=== PATIENT | male | born 1965 | race African-American/Black ===

== ENCOUNTER 2017-03-04 15:46 | Emergency (ER) | payer OTHER ==
[~2017-03-04] VITALS: Wt 84.5 kg
[~2017-03-04 15:46] MED LIST: ASPI325T4 PO; LORA-441 PO
[2017-03-04] MEDS ORDERED: LIDOCAINE 1% (MDV) 20 ML INJ SC ONE (16:30)
[2017-03-04] MEDS ORDERED: IBUPROFEN 600 MG TAB PO ONE (16:30)
[2017-03-04] MEDS ORDERED: DIPHTH/TET/ACEL PERTUSS (ADULT) 0.5 ML VIAL IM* ONE (16:30)
[2017-03-04] MEDS ORDERED: BACI28.34 TOP (17:11)
[2017-03-04] MEDS ORDERED: NAPR-260 PO (17:12)
--- NOTE | 2017-03-06 19:42 | ERD ---
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 The patient's tetanus is not up-to-date. This occurred 1 hour prior to arrival. The patient is right-hand dominant. The patient reports a moderate amount of pain associated with the laceration. He denies possible foreign body. He denies other injuries. No other complaints currently. ROS All systems reviewed and are negative except as per history of present illness. Medications Home Meds Active Scripts Naproxen* (Naprosyn*) 500 Mg Tablet, 500 MG PO BID Y for PAIN AND/OR INFLAMMATION, #20 TAB Prov:CHARMAINE OH PA-C 03/04/17 Bacitracin* (Bacitracin Zinc Oint*) 28.35 Gm Oint, 1 APPLIC TOP BID for 5 Days, #1 TUB APPLI TO Prov:CHARMAINE OH PA-C 03/04/17 Aspirin* (Aspirin*) 325 Mg Tablet, 325 MG PO DAILY, #30 TAB Prov:MAMTA OVERTON 11/11/15 Lorazepam* (Ativan*) 0.5 Mg Tablet, 0.5 MG PO Q8H Y for ANXIETY, #10 TAB Prov:MAMTA OVERTON 11/11/15 Allergies Allergies: Coded Allergies: No Known Allergies (Verified Allergy, Mild, 11/11/15) PMhx/Soc History of Surgery: No Anesthesia Reaction: No Hx Neurological Disorder: No Hx Respiratory Disorders: No Hx Cardiac Disorders: No Hx Psychiatric Problems: Yes (anxiety) Hx Miscellaneous Medical Probl: No Hx Alcohol Use: Yes (rarely) Hx Substance Use: No Hx Tobacco Use: No (quitted 8 years ago) Physical Exam Vitals Vital Signs Date Time Temp Pulse Resp B/P Pulse Ox O2 Delivery O2 Flow Rate FiO2 03/04/17 15:48 98.7 120 18 158/96 99 Physical Exam Const: Nontoxic, well-appearing male in mild distress secondary to pain. Head: Atraumatic Eyes: Normal Conjunctiva ENT: Normal External Ears, Nose and Mouth. Neck: Full range of motion..~ No meningismus. Skin: There is an approximate 2 cm laceration noted to the anterior aspect of the left index finger with no foreign body visualized. Back: No midline or flank tenderness Ext: No cyanosis, or edema Neur: Awake and alert Psych: Normal Mood and Affect Results 24 hrs Current Medications Medications (Trade) Dose Ordered Sig/Tree Route PRN Reason Start Time Stop Time Status Last Admin Dose Admin Diphtheria/ Tetanus/Acell Pertussis (Adacel) 0.5 ml ONCE ONCE IM* 03/04/17 16:30 03/04/17 16:31 DC 03/04/17 16:30 Lidocaine (Xylocaine 1% (Mdv) 20 ml) 20 ml ONCE ONCE SC 03/04/17 16:30 03/04/17 16:31 DC Ibuprofen (Motrin) 600 mg ONCE ONCE PO 03/04/17 16:30 03/04/17 16:31 DC 03/04/17 16:29 Procedures/MDM 51-year-old male presents to the emergency department with complaints of laceration to the left finger. 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 Tendon/Joint/Nerves: No injury Foreign body: None detected after copious irrigation and exploration Technique: Simple Interrupted Sutures Complexity: No subcutaneous sutures/mucosal repair/ edge excision Post Closure Length: 2 cm Patient's bleeding was easily controlled in the department and there is no indication of anemia. No evidence of compartment syndrome, neurologic injury, vascular injury, open joint, tendon laceration, or foreign body. Patient is appropriate for outpatient follow up. Tdap was updated. 48 hour wound check. Scar minimization instructions given. Departure Diagnosis: Primary Impression: Laceration Condition: Stable Patient Instructions: Laceration, Hand Referrals: [facility] YOU HAVE RECEIVED A MEDICAL SCREENING EXAM AND THE RESULTS INDICATE THAT YOU DO NOT HAVE A CONDITION THAT REQUIRES URGENT TREATMENT IN THE EMERGENCY DEPARTMENT. FURTHER EVALUATION AND TREATMENT OF YOUR CONDITION CAN WAIT UNTIL YOU ARE SEEN IN YOUR DOCTORS OFFICE WITHIN THE NEXT 1-2 DAYS. IT IS YOUR RESPONSIBILITY TO MAKE AN APPOINTMENT FOR FOLOW-UP CARE. IF YOU HAVE A PRIMARY DOCTOR --you should call your primary doctor and schedule an appointment IF YOU DO NOT HAVE A PRIMARY DOCTOR YOU CAN CALL OUR PHYSICIAN REFERRAL HOTLINE AT IF YOU CAN NOT AFFORD TO SEE A PHYSICIAN YOU CAN CHOSE FROM THE FOLLOWING [facility] [address] [facility] [address] [facility] [address] [facility] [address] [facility]. [facility] [address] [facility]. [facility] [address] [place] Additional Instructions: Please return in 2 days for wound recheck. Please return in 7 days for suture removal. Follow up with your PCP within the next 1-3 days for a repeat evaluation. If your diagnosis requires a referral to a specialist, your Primary Care Physician may be able to provide this for you. Return the the emergency department immediately if symptoms worsen or change. If you have any questions regarding medications, ask your pharmacist or us before you leave. If any adverse reactions, occur while taking your medications, discontinue the treatment and return to the emergency department immediately. If any new or worsening symptoms, uncontrolled fevers, or other unexplained symptoms occur, return to the emergency department immediately. Take your medications as directed, and complete the entire course of treatment. CHARMAINE OH PA-C Mar 06, 2017 19:42
== END 2017-03-04 17:30 | disposition home or self-care (01) ==
LOC: FTE 15:46
DX: S61.211A Laceration without foreign body of left index finger without damage to nail, initial encounter (principal); W22.8XXA Striking against or struck by other objects, initial encounter; Y92.89 Other specified places as the place of occurrence of the external cause; Z23 Encounter for immunization; Z79.82 Long term (current) use of aspirin; Z87.891 Personal history of nicotine dependence
CPT/HCPCS: 12001; 90715; Z7610; 90471

== ENCOUNTER 2017-03-11 16:31 | Emergency (ER) | payer OTHER ==
[~2017-03-11] VITALS: Ht 182.9 cm; Wt 84.0 kg
[~2017-03-11 16:31] MED LIST changes: +BACI28.34 TOP; +NAPR-260 PO
[2017-03-11 16:40] VITALS: Ht 182.9 cm; Wt 84.0 kg
--- NOTE | 2017-03-11 18:03 | ERD ---
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 Patient had 4 sutures placed. Denies any fever, chills, loss of sensation, loss of range of motion, purulent discharge. Reports that he is right-handed. ROS All systems reviewed and are negative except as per history of present illness. Medications Home Meds Active Scripts Naproxen* (Naprosyn*) 500 Mg Tablet, 500 MG PO BID Y for PAIN AND/OR INFLAMMATION, #20 TAB Prov:CHARMAINE OH PA-C 03/04/17 Bacitracin* (Bacitracin Zinc Oint*) 28.35 Gm Oint, 1 APPLIC TOP BID for 5 Days, #1 TUB APPLI TO Prov:CHARMAINE OH PA-C 03/04/17 Aspirin* (Aspirin*) 325 Mg Tablet, 325 MG PO DAILY, #30 TAB Prov:MAMTA OVERTON 11/11/15 Lorazepam* (Ativan*) 0.5 Mg Tablet, 0.5 MG PO Q8H Y for ANXIETY, #10 TAB Prov:MAMTA OVERTON 11/11/15 Allergies Allergies: Coded Allergies: No Known Allergies (Verified Allergy, Mild, 11/11/15) PMhx/Soc History of Surgery: No Anesthesia Reaction: No Hx Neurological Disorder: No Hx Respiratory Disorders: No Hx Cardiac Disorders: No Hx Psychiatric Problems: Yes (anxiety) Hx Miscellaneous Medical Probl: No Hx Alcohol Use: Yes (rarely) Hx Substance Use: No Hx Tobacco Use: No (quit 8 years ago) Smoking Status: Former smoker Physical Exam Vitals Vital Signs Date Time Temp Pulse Resp B/P Pulse Ox O2 Delivery O2 Flow Rate FiO2 03/11/17 16:40 98.6 75 20 115/71 99 Physical Exam Const: [id number], well-nourished. In no acute distress. Head: Atraumatic, normocephalic Eyes: Normal Conjunctiva without injection ENT: Normal external ear, nose and mouth. Neck: Full range of motion. No meningismus. Resp: Clear to auscultation bilaterally. No wheezing, rhonchi, rales, or crackles. No accessory muscle use. No retractions. Cardio: Regular rate and rhythm, no murmurs Skin: No petechiae or rashes Back: No midline tenderness. No CVA tenderness. Ext: No cyanosis, or edema. Cap refill less than 2 seconds. Distal pulses intact bilaterally. 2 cm laceration noted to the anterior aspect of the left index finger with no foreign body visualized with 4 sutures placed. Full range of motion of the DIP, PIP, MCP joints bilaterally. No purulent discharge. No bleeding noted. No erythema or edema. Neur: Awake and alert. Normal gait and coordination. Muscle strength 5/5. Sensation intact bilaterally. Psych: Normal Mood and Affect Procedures/MDM 51-year-old male patient with no significant past medical history presents to the ED complaining of suture removal of the left second index finger. Patient is afebrile and nontoxic-appearing. Patient has normal vital signs. 4 sutures were removed without any difficulty of left index finger. No signs of dehiscence. No signs of cellulitis or deep space infection. Patient has been taking naproxen with relief of his pain. Follow up with primary care physician in 1-2 days. Instructed patient to return to the ED sooner for any worsening symptoms. Patient's questions were answered. Patient understood and agreed with discharge plan. Patient discharged stable. Departure Diagnosis: Primary Impression: Encounter for removal of sutures Condition: Stable Patient Instructions: Suture Removal, No Complication Referrals: [facility] YOU HAVE RECEIVED A MEDICAL SCREENING EXAM AND THE RESULTS INDICATE THAT YOU DO NOT HAVE A CONDITION THAT REQUIRES URGENT TREATMENT IN THE EMERGENCY DEPARTMENT. FURTHER EVALUATION AND TREATMENT OF YOUR CONDITION CAN WAIT UNTIL YOU ARE SEEN IN YOUR DOCTORS OFFICE WITHIN THE NEXT 1-2 DAYS. IT IS YOUR RESPONSIBILITY TO MAKE AN APPOINTMENT FOR FOLOW-UP CARE. IF YOU HAVE A PRIMARY DOCTOR --you should call your primary doctor and schedule an appointment IF YOU DO NOT HAVE A PRIMARY DOCTOR YOU CAN CALL OUR PHYSICIAN REFERRAL HOTLINE AT IF YOU CAN NOT AFFORD TO SEE A PHYSICIAN YOU CAN CHOSE FROM THE FOLLOWING [facility] [address] [facility] [address] [facility]. [facility] [address] [facility] [address] [facility] [address] [facility]. [facility] [address] [facility]. [facility] YOU HAVE RECEIVED A MEDICAL SCREENING EXAM AND THE RESULTS INDICATE THAT YOU DO NOT HAVE A CONDITION THAT REQUIRES URGENT TREATMENT IN THE EMERGENCY DEPARTMENT. FURTHER EVALUATION AND TREATMENT OF YOUR CONDITION CAN WAIT UNTIL YOU ARE SEEN IN YOUR DOCTORS OFFICE WITHIN THE NEXT 1-2 DAYS. IT IS YOUR RESPONSIBILITY TO MAKE AN APPOINTMENT FOR FOLOW-UP CARE. IF YOU HAVE A PRIMARY DOCTOR --you should call your primary doctor and schedule and appointment IF YOU DO NOT HAVE A PRIMARY DOCTOR YOU CAN CALL OUR PHYSICIAN REFERRAL HOTLINE AT . IF YOU CAN NOT AFFORD TO SEE A PHYSICIAN YOU CAN CHOSE FROM THE FOLLOWING [facility] INSTITUTIONS: [facility] [place] [address] [place] [address] [facility] [address] [place], [place] [address] [place] [address] [address] [place] [address] [facility] U[facility]ENT [facility]/SPECIALTIES Additional Instructions: Call your primary care doctor for an appointment during the next 2-3 days.See the doctor sooner or return here if your condition worsens before your appointment time. ISABEL EDMOND PA-C Mar 11, 2017 18:03
== END 2017-03-11 17:47 | disposition home or self-care (01) ==
LOC: FTE 16:31
DX: Z48.02 Encounter for removal of sutures (principal); Z79.82 Long term (current) use of aspirin; Z87.891 Personal history of nicotine dependence
CPT/HCPCS: 99281

== ENCOUNTER 2017-11-05 14:12 | Emergency (ER) | END 2017-11-05 17:00 | disposition home or self-care (01) ==

== ENCOUNTER 2017-11-07 12:52 | Emergency (ER) | END 2017-11-07 15:45 | disposition home or self-care (01) ==